=== PATIENT | male | born 1975 | race Caucasian/White ===

== ENCOUNTER → 2018-10-17 11:03 | Outpatient (CLI) | payer OTHER, SELFPAY ==
[2018-10-17 11:36] LABS: Basophils % 0.4 % (0.1-2.0); Eosinophils % 0.1 % (0.1-12.0); Hematocrit 40.1 % (42.0-52.0); Lymphocytes # 0.9 K/mm3 (0.7-4.5); Mean Corpuscular HGB Conc 34.9 g/dL (31.8-35.4); Mean Corpuscular Hemoglobin 28.4 pg (27.0-31.2); Mean Corpuscular Volume 81.4 fl (80-94); Mean Platelet Volume 8.2 fl (7.4-10.4); Monocytes # 0.2 K/mm3 (0.1-1.0); Monocytes % 4.7 % (1.7-9.3); Neutrophils # 3.3 K/mm3 (1.8-7.8); Neutrophils % 73.7 % (37.0-80.0); Platelet Count 110 K/mm3 (142-424); Red Blood Count 4.93 M/mm3 (4.60-6.20); Red Cell Distribution Width 12.8 % (11.5-17.5); White Blood Count 4.5 K/mm3 (4.8-10.8)
[2018-10-17 13:13] LABS: Hemoglobin A1C 6.5 % (0.0-7.0)
[2018-10-17 13:16] LABS: Alanine Aminotransferase 109 U/L (12-78); Albumin Level 3.7 gm/dL (3.4-5.0); Albumin/Globulin Ratio 1.1 (1.1-1.8); Alkaline Phosphatase 90 U/L (46-116); Anion Gap 13.5 mEq/L (5-15); Aspartate Amino Transferase 86 U/L (15-37); Blood Urea Nitrogen 16 mg/dL (7-18); Calcium 8.2 mg/dL (8.5-10.1); Carbon Dioxide 25 mmol/L (21.0-32.0); Chloride 101 mmol/L (98-107); Creatinine,Serum 1.07 mg/dL (0.70-1.30); Estimated Glomerular Filt Rate 76 ml/min (>60); GFR (African American) 92 ML/MIN (>60); Globulin 3.4 gm/dl (1.3-3.2); Glucose 158 mg/dL (74-106); Potassium 3.5 mmoL/L (3.5-5.1); Sodium 136 mmol/L (136-145); Total Protein,Serum 7.1 gm/dL (6.4-8.2)
== END ==
PROVIDERS: PCP Internal Medicine Adolescent Medicine; Visit Provider Internal Medicine Adolescent Medicine
DX: R50.9 Fever, unspecified (principal); R73.9 Hyperglycemia, unspecified
CPT/HCPCS: 36415; 80053; 83036; 85025

== ENCOUNTER → 2020-08-11 12:32 | Outpatient (CLI) | payer OTHER, SELFPAY ==
[2020-08-11 13:00] LABS: Hemoglobin A1C 6.9 % (4.0-6.0)
[2020-08-11 13:09] LABS: Basophils # 0.1 K/mm3 (0-0.2); Basophils % 0.6 % (0.1-2.0); Eosinophils # 0.2 K/mm3 (0.0-0.4); Eosinophils % 2.2 % (0.1-12.0); Hematocrit 43.8 % (42.0-52.0); Hemoglobin 14.6 g/dL (14.1-18.0); Lymphocytes # 2.9 K/mm3 (0.7-4.5); Lymphocytes % 31.7 % (10-50); Mean Corpuscular HGB Conc 33.3 g/dL (31.8-35.4); Mean Corpuscular Hemoglobin 28.4 pg (27.0-31.2); Mean Corpuscular Volume 85.4 fl (80-94); Mean Platelet Volume 8.2 fl (7.4-10.4); Monocytes # 0.5 K/mm3 (0.1-1.0); Monocytes % 5.3 % (1.7-9.3); Neutrophils # 5.6 K/mm3 (1.8-7.8); Neutrophils % 60.3 % (37.0-80.0); Platelet Count 221 K/mm3 (142-424); Red Blood Count 5.12 M/mm3 (4.60-6.20); Red Cell Distribution Width 13.6 % (11.5-17.5); White Blood Count 9.3 K/mm3 (4.8-10.8)
[2020-08-11 14:38] LABS: Alanine Aminotransferase 39 U/L (12-78); Albumin Level 4.3 g/dl (3.5-5.0); Albumin/Globulin Ratio 1.4 (1.1-1.8); Alkaline Phosphatase 76 U/L (38-126); Anion Gap 13.2 mEq/L (5-15); Aspartate Amino Transferase 34 U/L (17-59); Bilirubin,Total 0.6 mg/dl (0.2-1.3); Blood Urea Nitrogen 13 mg/dl (9-20); Calcium 9.5 mg/dl (8.4-10.2); Carbon Dioxide 31 mmol/L (22.0-30.0); Chloride 103 mmol/L (98-107); Chol/HDL Ratio 4.7 (1-3.5); Cholesterol 175 mg/dl (140-200); Estimated Glomerular Filt Rate 92 ml/min (>60); GFR (African American) 111 ML/MIN (>60); Globulin 3.1 g/dL (1.3-3.2); Glucose 99 mg/dl (74-100); HDL Cholesterol 37 mg/dl (40-60); Potassium 4.2 mmoL/L (3.5-5.1); Sodium 143 mmol/L (136-145); Total Protein,Serum 7.4 g/dl (6.3-8.2); Triglycerides 203 mg/dl (30-150); Uric Acid 7.1 mg/dl (3.5-8.5); VLDL Cholesterol 41 mg/dL (0-40)
[2020-08-11 14:50] LABS: Direct LDL Cholesterol 91.41 mg/dL (100-129)
== END ==
PROVIDERS: Visit Provider Internal Medicine Adolescent Medicine
DX: Z00.00 Encounter for general adult medical examination without abnormal findings (principal); M10.9 Gout, unspecified
CPT/HCPCS: 36415; 80053; 80061; 83036; 84550; 85025

== ENCOUNTER → 2020-12-15 09:10 | Outpatient (CLI) | payer OTHER, SELFPAY ==
[2020-12-15 09:36] LABS: Hemoglobin A1C 6.6 % (4.0-6.0)
[2020-12-15 10:40] LABS: Alanine Aminotransferase 107 U/L (12-78); Albumin Level 4.5 g/dl (3.5-5.0); Albumin/Globulin Ratio 1.4 (1.1-1.8); Alkaline Phosphatase 83 U/L (38-126); Anion Gap 15.2 mEq/L (5-15); Aspartate Amino Transferase 57 U/L (17-59); Bilirubin,Total 0.7 mg/dl (0.2-1.3); Blood Urea Nitrogen 14 mg/dl (9-20); Calcium 9.2 mg/dl (8.4-10.2); Carbon Dioxide 30 mmol/L (22.0-30.0); Chloride 104 mmol/L (98-107); Estimated Glomerular Filt Rate 81 ml/min (>60); GFR (African American) 98 ML/MIN (>60); Globulin 3.2 g/dL (1.3-3.2); Glucose 126 mg/dl (74-100); Potassium 4.2 mmoL/L (3.5-5.1); Sodium 145 mmol/L (136-145); Total Protein,Serum 7.7 g/dl (6.3-8.2)
== END ==
PROVIDERS: Visit Provider Internal Medicine Adolescent Medicine
DX: E11.9 Type 2 diabetes mellitus without complications (principal)
CPT/HCPCS: 36415; 80053; 83036

== ENCOUNTER → 2021-04-05 10:03 | Outpatient (CLI) | payer OTHER, SELFPAY ==
[2021-04-05 22:26] LABS: Free Thyroxine Index 2.6 ug/dL (5.93-13.13); T4 (Thyroxine) 8.1 ug/dl (5.53-11.0); Triiodothryronine (T3) Uptake 32 % (23.5-40.5)
[2021-04-05 22:40] LABS: Thyroid Stimulating Hormone 2.54 uIU/mL (0.465-4.68)
[2021-04-06 14:11] LABS: Deamidated Gliadin Abs, IgA 9 units (0-19); Deamidated Gliadin Abs, IgG 3 units (0-19)
== END ==
PROVIDERS: Visit Provider Internal Medicine Adolescent Medicine
DX: K52.9 Noninfective gastroenteritis and colitis, unspecified (principal)
CPT/HCPCS: 36415; 83516; 84436; 84443; 84479

== ENCOUNTER → 2021-05-15 13:52 | Outpatient (CLI) | payer OTHER, SELFPAY | PROVIDERS: Visit Provider Surgery | DX: Z01.812 Encounter for preprocedural laboratory examination (principal); Z11.52 Encounter for screening for COVID-19; Z12.11 Encounter for screening for malignant neoplasm of colon | CPT/HCPCS: C9803; U0003; U0005 ==

== ENCOUNTER 2021-05-17 11:27 | Day surgery (SDC) | payer OTHER, SELFPAY ==
[2021-05-09 13:58] VITALS: BMI 34.8
[2021-05-17] VITALS (7 sets, daily range): BP systolic 105–133; BP diastolic 56–79; PULSE 55–66; RESP 16–18; TEMP 36.1–36.8; O2SAT 92–99
--- NOTE | 2021-05-17 12:24 | P.PN_ITS ---
[facility] Anesthesia Checklist - Structural Data Admitted From: Home Planned Operative Procedure/s: colonoscopy Consent for Planned Operative Procedure(s) Verified: Yes - Airway Assessment C-Spine Mobility Assessed: Yes TMJ Mobility Assessed: Yes Dentition: Good Dentition - Neurological Assessment Level of Consciousness: Awake, Alert, Appropriate - Anesthesia Plan Anesthesia Risk discussed: Yes Anesthesia Plan: Verified ASA Class: II Anesthesia Type: MAC [facility] History I have reviewed the patient's past medical history: Yes Medical History: Reports:: Diabetes Mellitus Type 2 Denies:: Cancer, Internal Pacemaker, MRSA, Seizures *Have you ever received a pneumonia vaccine?: No *Have you received a flu vaccine this season?: Yes Anesthesia experience/problems:: none Laterality Cases: Bilateral: Tonsillectomy Other Surgeries: No: Pacemaker Amputation: No - *Social History Smoking Status: Smoker, status unknown Alcohol Intake: never Substance Use Type: denies use *Occupational Status:: employed *Travel in the last 8 weeks: None Family Hx:: No significant family history
--- NOTE | 2021-05-17 12:53 | P.PCN_ITS ---
- Procedure: Date: 05/17/21 Patient Date of :: 1975 Procedure Performed:: Total colonoscopy to terminal ileum with biopsies and polypectomy Indications:: Patient is a 45-year-old male from [facility] scheduled for colonoscopy by Dr. Nima De León. Patient has never had prior colonoscopy. He does describe some symptoms of postprandial fecal urgency. This has become more frequent. He states there are no particular foods which seem to be more problematic. He does state it seems to be worse when he eats and then drives. Performing Provider:: Devaughn Del Angel MD Referring Provider:: Nima De León MD Sedation:: MAC sedation Procedure:: Patient was taken to endoscopy procedure room. He was positioned in lateral decubitus position. Adequate intravenous sedation was achieved with anesthesia titration propofol. Olympus endoscope was inserted via the anus. Is advanced to the cecum with some minor difficulty due to some floppiness and redundancy of the sigmoid colon. Ileocecal valve and appendiceal orifice were clearly identified. Colonoscope was advanced into the terminal ileum which appeared grossly normal. Biopsy was obtained. Colonoscope was withdrawn into the cecum. Colonoscope was slowly withdrawn. Several random right and left colon biopsies were obtained using cold biopsy forceps to evaluate for microscopic colitis. At the sigmoid colon at approximately 30 cm from the anus there was a moderately large pedunculated polyp. This was removed with hot snare. At the completion of the polypectomy a limited amount of Annelise ink was injected at the site. Retroflexion was performed within the rectum which revealed no evidence of any pathologic internal hemorrhoids. Colonoscope was withdrawn. Findings:: Moderately large sigmoid polyp Otherwise unremarkable colonoscopy Recommendations:: Source of his symptomatology may be functional. Regarding the polyp likely repeat colonoscopy within 5 years Complications:: None immediately apparent Estimated blood obtained (mL): 1
[2022-02-15 10:55] LABS: POC Glucose,Bedside 95 (70-110)
== END 2021-05-17 13:45 | disposition home or self-care (01) ==
LOC: OUTP 11:30
PROVIDERS: PCP Internal Medicine Adolescent Medicine; Visit Provider Surgery
PROC: 0DJD8ZZ Inspection of Lower Intestinal Tract, Via Natural or Artificial Opening Endoscopic (ICD-10-PCS; CPT 45380; principal; 2021-05-17 12:30)
DX: Z12.11 Encounter for screening for malignant neoplasm of colon (principal); K63.5 Polyp of colon; K56.2 Volvulus; E11.9 Type 2 diabetes mellitus without complications
CPT/HCPCS: 45380; 45385; 45381; 82962

== ENCOUNTER 2021-05-19 20:10 | Emergency (ER) | payer OTHER, SELFPAY ==
[2021-05-19 20:11] VITALS: BP 157/103; PULSE 75; RESP 18; TEMP 36.6; O2SAT 97; BMI 34.8
[2021-05-19 20:27] LABS: Microscopic, Urine URINE MICROSCOPIC (MICROSCOPIC)
--- NOTE | 2021-05-19 20:36 | CT_ITS ---
PROCEDURE INFORMATION: Exam: CT Abdomen Without Contrast Exam date and time: 05/19/2021 8:36 PM Age: 45 years old Clinical indication: Abdominal pain; Flank; Right; Prior surgery; Surgery date: 6+ months; Surgery type: Lithotripsy for kidney stones; Additional info: RT flank pain, HX of 9mm stones, recent colonoscop TECHNIQUE: Imaging protocol: Computed tomography images of the abdomen without contrast. Radiation optimization: All CT scans at this facility use at least one of these dose optimization techniques: automated exposure control; mA and/or kV adjustment per patient size (includes targeted exams where dose is matched to clinical indication); or iterative reconstruction. COMPARISON: No relevant prior studies available. FINDINGS: Liver: Fatty liver. Gallbladder and bile ducts: Normal. No calcified stones. No ductal dilation. Pancreas: Normal. No ductal dilation. Spleen: Normal. No splenomegaly. Adrenals: Normal. No mass. Kidneys and ureters: Mild right hydronephrosis and ureteral dilatation secondary to a 6 mm stone in the distal right ureter. Punctate non-obstructing right renal stones. Stomach and bowel: Visualized stomach and bowel are unremarkable. No obstruction. No mucosal thickening. Intraperitoneal space: Unremarkable. No free air. No significant fluid collection. Lymph nodes: Unremarkable. No enlarged lymph nodes. Vasculature: Unremarkable. No abdominal aortic aneurysm. Bones/joints: Unremarkable. No acute fracture. No dislocation. Soft tissues: Unremarkable. IMPRESSION: Mild right hydronephrosis and ureteral dilatation secondary to a 6 mm stone in the distal right ureter.
[2021-05-19 20:39] LABS: Appearance,Urine CLEAR (Clear); Bilirubin,Urine Negative (Negative); Blood, Urine 3+ (Negative); Color,Urine YELLOW (Yellow); Glucose,Urine (UA) TRACE (Negative); Ketones,Urine Negative (Negative); Leukocyte Esterase,Urine Negative (Negative); Nitrate,Urine Negative (Negative); Protein,Urine TRACE (Negative); Specific Gravity, Urine 1.025 (1.005-1.030); Urobilinogen,Urine 0.2 EU/dl (0.2)
--- NOTE | 2021-05-19 20:39 | HMH.EDGENADL ---
ED Disposition Clinical Impression: Nephrolithiasis Disposition: Home, Self-Care Condition on Discharge: Good Prescriptions: Hydrocodone/Acetaminophen [Hydrocodone-Acetamin 10-325 mg] 1 tab PO TID #6 tab Transmission Status: Received by [id number] Referrals: Nima De León MD [Primary Care Provider] - - Critical Care Critical Care Time: No Attestation: On 05/19/21, the high probability of a clinically significant, sudden or life threatening deterioration of the following system(s) required my full and direct attention, intervention and personal management. The time I documented below is in addition to time spent performing reported procedures but includes the following listed in this critical care notation. Medical Decision Making - Medical Records Medical records reviewed: Yes: I reviewed the patient's medical records. - Jaquan Inquiry Pt receiving controlled substance: No Vital Signs: 05/19/21 20:11 Temperature 97.8 F Temperature Source Oral Pulse Rate [Right] 75 Respiratory Rate 18 Blood Pressure [Right Arm] 157/103 H Blood Pressure Mean [Right Arm] 121 02 Sat by Pulse Oximetry 97 - Lab Data Lab Results 05/19/21 20:14: Urine Color Yellow, Urine Appearance Clear, Urine pH 6.0, Ur Specific Kirk 1.025, Urine Protein Trace, Urine Glucose (UA) Trace, Urine Ketones Negative, Urine Blood 3+, Urine Nitrate Negative, Urine Bilirubin Negative, Urine Urobilinogen 0.2, Ur Leukocyte Esterase Negative, Urine RBC 20-50 05/19/21 20:30: WBC 9.1, RBC 5.17, Hgb 14.7, Hct 45.5, MCV 87.9, MCH 28.4, MCHC 32.3, RDW 13.7, Plt Count 257, MPV 8.7, Neut % (Auto) 54.2, Lymph % (Auto) 34.7, [place] % (Auto) 7.1, Eos % (Auto) 3.0, Baso % (Auto) 1.0, Neut # (Auto) 4.9, Lymph # (Auto) 3.2, [place] # (Auto) 0.6, Eos # (Auto) 0.3, Baso # (Auto) 0.1 05/19/21 20:30: Sodium 141, Potassium 3.5, Chloride 102, Carbon Dioxide 33 H, Anion Gap 9.5, BUN 10, Creatinine 0.70, Estimated Creat Clear 214, Estimated GFR 122, Est GFR ( Amer) 148, Glucose 102 H, Calcium 9.6, Total Bilirubin 0.5, AST 51, ALT 75, Alkaline Phosphatase 77, Total Protein 7.7, Albumin 4.4, Globulin 3.3 H, Albumin/Globulin Ratio 1.3 Result diagrams: 05/19/21 20:30 05/19/21 20:30 Orders (Tests/Meds): ED MEDICATIONS Discontinued Medications Generic Name Dose Route Start Last Admin Trade Name Constance PRN Reason Stop Dose Admin Ketorolac Tromethamine 30 mg 05/19/21 21:38 05/19/21 21:42 Ketorolac 30mg/Ml Vial IV 05/19/21 21:39 30 mg ONCE ONE Administration Morphine Sulfate 4 mg 05/19/21 21:38 05/19/21 21:42 Morphine 4mg/Ml Syringe IV 05/19/21 21:39 4 mg ONCE ONE Administration - CT Data CT Scan: Abdomen, Pelvis Time Received: 20:[address] Reviewed: Yes: I have reviewed the patient's CT results Preliminary Findings: Abnormal (Right-sideed 4 mm stone detected in the mid ureter, mild hydro on the right) Medical Decision Narrative: Patient is a 45-year-old male presents the ED today for further evaluation of right flank pain. Patient is well-appearing on initial evaluation in no acute distress, vital signs stable, hypertension with no tachycardia. With right flank pain history of kidney stones most likely differential most cases a kidney stone, and is a non-smoker, approaching the age of risk for AAA, so we did bedside ultrasound of the patient's right and left kidneys which did not show any evidence of hydro-, and abdominal aorta with no evidence of dilation ultrasound. We will obtain CBC, CMP, UA, CT scan of the abdomen pelvis without IV contrast, after shared decision making the patient we have elected to obtain the scan as he had recent colonoscopy and is nervous about post complications and kidney stone size. We will treat symptomatically with 15 mg of IV Toradol, 4 mg IV morphine Patient feels improved, CT stone protocol study with evidence of a 6 mm right sided stone with mild hydronephrosis, patient given this diagnosis, no o
[2021-05-19 20:42] LABS: RBC,Urine 20-50 #/hpf (0-3)
[2021-05-19 20:43] LABS: Basophils # 0.1 K/mm3 (0-0.2); Eosinophils # 0.3 K/mm3 (0.0-0.4); Hematocrit 45.5 % (42.0-52.0); Hemoglobin 14.7 g/dL (14.1-18.0); Lymphocytes # 3.2 K/mm3 (0.7-4.5); Lymphocytes % 34.7 % (10-50); Mean Corpuscular HGB Conc 32.3 g/dL (31.8-35.4); Mean Corpuscular Hemoglobin 28.4 pg (27.0-31.2); Mean Corpuscular Volume 87.9 fl (80-94); Mean Platelet Volume 8.7 fl (7.4-10.4); Monocytes # 0.6 K/mm3 (0.1-1.0); Monocytes % 7.1 % (1.7-9.3); Neutrophils # 4.9 K/mm3 (1.8-7.8); Neutrophils % 54.2 % (37.0-80.0); Platelet Count 257 K/mm3 (142-424); Red Blood Count 5.17 M/mm3 (4.60-6.20); Red Cell Distribution Width 13.7 % (11.5-17.5); White Blood Count 9.1 K/mm3 (4.8-10.8)
[2021-05-19 20:44] LABS: Alanine Aminotransferase 75 U/L (12-78); Albumin Level 4.4 g/dl (3.5-5.0); Albumin/Globulin Ratio 1.3 (1.1-1.8); Alkaline Phosphatase 77 U/L (38-126); Anion Gap 9.5 mEq/L (5-15); Aspartate Amino Transferase 51 U/L (17-59); Bilirubin,Total 0.5 mg/dl (0.2-1.3); Blood Urea Nitrogen 10 mg/dl (9-20); Calcium 9.6 mg/dl (8.4-10.2); Carbon Dioxide 33 mmol/L (22.0-30.0); Chloride 102 mmol/L (98-107); Creatinine Clearance Estimated 214 mL/min (50-200); Estimated Glomerular Filt Rate 122 ml/min (>60); GFR (African American) 148 ML/MIN (>60); Globulin 3.3 g/dL (1.3-3.2); Glucose 102 mg/dl (74-100); Potassium 3.5 mmoL/L (3.5-5.1); Sodium 141 mmol/L (136-145); Total Protein,Serum 7.7 g/dl (6.3-8.2)
[2021-05-19 21:54] VITALS: BP 148/90; PULSE 74; RESP 18; TEMP 36.8; O2SAT 98
== END 2021-05-19 22:04 | disposition home or self-care (01) ==
PROVIDERS: Emergency Provider Student in an Organized Health Care Education/Training Program; PCP Internal Medicine Adolescent Medicine
DX: N20.0 Calculus of kidney (principal); E11.9 Type 2 diabetes mellitus without complications
CPT/HCPCS: 74150; 80053; 81001; 85025; 96374; 96375; 99283

== ENCOUNTER 2025-02-19 06:20 | Day surgery (SDC) | payer OTHER, SELFPAY ==
[2025-02-16 10:13] VITALS: BMI 30.7
--- NOTE | 2025-02-19 06:16 | EXP.GEN.HP ---
HPI HPI HPI: Patient is a 49-year-old male who presents for follow-up colonoscopy. I had performed colonoscopy on 05/17/2021 at which time he was having some symptoms of postprandial fecal urgency. Colonoscopy to the terminal ileum was unremarkable other than a 15 mm sigmoid tubular adenoma. Biopsies of terminal ileum, right colon, and left colon were all normal. Recommendations were for 3-year follow-up colonoscopy given the moderately large tubular adenoma on initial colonoscopy. Recommendations were for consideration of gastroenterology evaluation given his gastrointestinal issues. He is on Ozempic. Last dose 02/16/2025. [facility] Disclaimer: The information contained in this section may have been updated after the patient was seen, as this information can be updated by other users. Medical History Kidney stone Irritable bowel syndrome (IBS) Surgical History History of surgery Family History Other No significant family history Social History Smoking Status: Never smoker alcohol intake: never substance use type: denies use current occupational status: employed Travel in the last 8 weeks?: None caffeine: Yes Have you lived/traveled outside US in past 30 days?: No Contact w/someone who lives/traveled outside US past 30 days?: No Exposure to someone with infectious disease in past 14 days?: No Do you have a fever (greater than 100.4 F or 38 C)?: No Have you tested positive for COVID-19?: No Exposed to someone with COVID-19 in past 14 days?: No Do you have a sore throat?: No Do you have a cough?: No Do you have any weakness?: No Are you experiencing any nausea/vomitting?: No Do you have any diarrhea?: No Are you experiencing any unusual bleeding?: No Do you have any muscle aches/pain?: No Do you have any abdominal pain?: No Are you experiencing loss of taste or smell?: No Other Medical History Have you received the Flu Vaccine for this season: Yes Have you received the Pneumonia Vaccine: No Meds Home Medications and Allergies Home Medications ?Medication ?Instructions ?Recorded ?Confirmed ?Type allopurinol 300 mg tablet 300 mg PO DAILY PRN gout 05/09/21 02/16/25 History dapagliflozin propanediol 10 mg 10 mg PO DAILY Diabetes 05/09/21 02/16/25 History tablet (Farxiga) metformin 1,000 mg tablet 500 mg PO DAILY pre-diabetes 05/09/21 02/16/25 History sodium,potassium,mag sulfates 17.5 See Rx Instructions PO .COMPLEX 02/02/25 Rx gram-3.13 gram-1.6 gram oral soln #354 mL (Suprep Bowel Prep Kit) prednisone 5 mg tablets in a dose 0 mg PO PER PKG DIR 02/16/25 02/16/25 History pack semaglutide 2 mg/dose (8 mg/3 mL) 2 mg SQ WEEKLY 02/16/25 02/19/25 History subcutaneous pen injector (Ozempic) New Prescriptions to Start Prescriptions: Allergies Allergy/AdvReac Type Severity Reaction Status Date / Time No Known Allergies Allergy Verified 02/19/25 06:49 Exam Data for Last 24 hours I & O for Last 24 hours: Intake & Output 02/16/25 02/17/25 02/18/25 02/19/25 11:59 11:59 11:59 11:59 Weight 220 lb Constitutional Constitutional: no acute distress *Routine HEENT Exam Head: Present normocephalic Eye: Present EOMI and PERRL ENT: Present mucous membranes moist *Routine Neck Exam Neck: Present supple; Absent lymphadenopathy *Routine Respiratory Exam Respiratory: Present CTA bilaterally *Routine Cardiovascular Exam Cardiovascular: Present RRR *Routine Abdominal Exam Abdominal: Present soft and normoactive bowel sounds; Absent tenderness *Routine Rectal Exam Rectal:: deferred *Routine Genitalia Exam Genitalia:: deferred *Routine Extremities Exam Extremities: Absent cyanosis, clubbing or edema *Routine Skin Exam Skin: Present warm; Absent rash *Routine Neurological Exam Neurological: Present alert and oriented X3 Assessment and Plan *Assessment and plan (1) Tubular adenoma of colon: Status: Acute Category: Medical Code(s): D12.6 - Benign neoplasm of colon, unspecified
[2025-02-19 06:38] VITALS: BP 130/84; RESP 16; TEMP 36.3; O2SAT 100; BMI 30.7
--- NOTE | 2025-02-19 06:51 | P.PCN_ITS ---
Procedure: Date: 02/19/25 Patient Date of :: 1975 Procedure Performed:: Total colonoscopy to terminal ileum with biopsy Indications:: Patient is a 49-year-old male who presents for follow-up colonoscopy. I had performed colonoscopy on 05/17/2021 at which time he was having some symptoms of postprandial fecal urgency. Colonoscopy to the terminal ileum was unremarkable other than a 15 mm sigmoid tubular adenoma. Biopsies of terminal ileum, right colon, and left colon were all normal. Recommendations were for 3-year follow- up colonoscopy given the moderately large tubular adenoma on initial colon oscopy. Recommendations were for consideration of gastroenterology evaluation given his gastrointestinal issues. Patient is on Ozempic. . Performing Provider:: Devaughn Del Angel MD . Referring Provider:: Nima De León MD . Sedation:: MAC Sedation . Procedure:: Patient history was obtained and appropriate physical examination was performed. Patient's medications and allergies were reviewed. Informed consent was obtained after explaining the benefits, alternatives, and risks of the procedure including, but not limited to, bleeding, perforation, missed lesions, and adverse reaction to anesthesia medications. Patient was transported to endoscopy procedure room. Patient was connected to monitoring devices. Throughout the procedure the patient's blood pressure, pulse, and oxygen saturations were monitored continuously. Patient identification and planned procedure were verified by the staff. Patient was positioned in lateral decubitus position. Digital anorectal exam was performed. Variable stiffness Olympus colonoscope was inserted and advanced under direct visualization to the cecum. Adequacy of the colonic preparation was noted. The colonoscope was advanced a short distance into the terminal ileum. The colonoscope was then slowly withdrawn while carefully examining the color, texture, anatomy, and integrity of the mucosoa circumferentially. Within the rectum retroflexion was performed. Colonoscope was then withdrawn. Impression: Colonic preparation was good. There was some translucent liquid suctioned free. He did have some redundancy and floppiness of the colon which required abdominal pressure. Ultimately the colonoscope was advanced to the ileocecal valve and into the terminal ileum. There was a subtle area of prominence on the ileocecal valve which was biopsied. Likely inconsequential but removed with biopsy forceps in a piecemeal fashion to rule out early sessile polyp. Remainder of the colon was relatively unremarkable other than some rare scattered sigmoid diverticuli. . Findings:: Focal area of prominence on the ileocecal valve removed with biopsy forceps, likely inconsequential Rare sigmoid diverticulosis Recommendations:: Repeat colonoscopy pending pathology. If adenomatous 3 to 5 years. If benign 7-10. Complications:: None immediately apparent Estimated blood obtained (mL): 1 Colonoscopy Component Colonoscopy Component Was a colonoscopy performed during today's procedure?: Yes Recommended follow up colonoscopy of at least 10 years?: No If no, follow up colonoscopy recommended in ___ years?: See above Reason for not recommending >/= 10 yr follow-up interval?: See above
[2025-02-19] MEDS: LACTATED RINGERS 1000ML 1,000 ML 50 ML IV (06:55)
--- NOTE | 2025-02-19 07:18 | P.PNANES_ITS ---
[facility] Disclaimer: The information contained in this section may have been updated after the patient was seen, as this information can be updated by other users. Medical History Kidney stone Irritable bowel syndrome (IBS) Surgical History History of surgery Family History Other No significant family history Social History Smoking Status: Never smoker alcohol intake: never substance use type: denies use current occupational status: employed Travel in the last 8 weeks?: None caffeine: Yes Have you lived/traveled outside US in past 30 days?: No Contact w/someone who lives/traveled outside US past 30 days?: No Exposure to someone with infectious disease in past 14 days?: No Do you have a fever (greater than 100.4 F or 38 C)?: No Have you tested positive for COVID-19?: No Exposed to someone with COVID-19 in past 14 days?: No Do you have a sore throat?: No Do you have a cough?: No Do you have any weakness?: No Are you experiencing any nausea/vomitting?: No Do you have any diarrhea?: No Are you experiencing any unusual bleeding?: No Do you have any muscle aches/pain?: No Do you have any abdominal pain?: No Are you experiencing loss of taste or smell?: No [facility] Anesthesia Checklist Patient Identification Patient Identification: Arm Band Structural Data Admitted From: Home Planned Operative Procedure/s: Colonoscopy Consent for Planned Operative Procedure(s) Verified: Yes Verified Documents: Surgical Consent and History and Physical NPO Status Verified Time NPO: 00:00 Additional verifications Anesthesia Reactions: No Airway Assessment Mallampati Score:: Class II C-Spine Mobility Assessed: Yes TMJ Mobility Assessed: Yes Dentition: Good Dentition Neurological Assessment Level of Consciousness: Awake, Alert and Appropriate Anesthesia Plan Anesthesia Risk discussed: Yes Anesthesia Plan: Verified ASA Class: II Anesthesia Type: MAC
[2025-02-19 07:56] VITALS: BP 117/70; RESP 16; TEMP 36.2; O2SAT 95
[2025-02-19 08:06] VITALS: BP 121/72; RESP 18; TEMP 36.2; O2SAT 94
[2025-02-19 08:16] VITALS: BP 135/75; RESP 18; TEMP 36.2; O2SAT 96
[2025-02-19 08:26] VITALS: BP 123/74; RESP 18; TEMP 36.2; O2SAT 97
[2025-02-19 11:10] LABS: POC Glucose,Bedside 94 gm/dL (70-110)
== END 2025-02-19 08:26 | disposition home or self-care (01) ==
PROVIDERS: PCP Internal Medicine Adolescent Medicine; Visit Provider Surgery
PROC: 0DJD8ZZ Inspection of Lower Intestinal Tract, Via Natural or Artificial Opening Endoscopic (ICD-10-PCS; CPT 45380; principal; 2025-02-19 07:30)
DX: K63.89 Other specified diseases of intestine (principal); K57.30 Diverticulosis of large intestine without perforation or abscess without bleeding; D12.6 Benign neoplasm of colon, unspecified; Z86.0101 Personal history of adenomatous and serrated colon polyps
CPT/HCPCS: 45380; 82962; J2003; J2704; J7120